=== PATIENT | female | born 1940 | race Caucasian/White ===

== ENCOUNTER 2022-02-09 20:28 | Observation (INO) | payer MEDICARE, BC, MEDICAID, SELFPAY ==
[2022-02-09] VITALS (17 sets, daily range): BP systolic 83–111; BP diastolic 45–60; PULSE 62–133; RESP 12–22; TEMP 36.8; O2SAT 98–100
--- NOTE | ~2022-02-09 | XR_ITS ---
EXAM: XR shoulder RT min 2V DATE: 02/09/2022 21:05 HISTORY: FALL, PAIN . COMPARISON: None available. FINDINGS: Partially visualized AICD lead. Normal mineralization. No fracture or dislocation. No lytic or blastic lesion. Degenerative glenohumeral and AC joint change. No erosion or periosteal change. S oft tissues within normal limits. IMPRESSION: No acute osseous finding in the right shoulder. Reviewed, dictated and finalized at location K.
--- NOTE | ~2022-02-09 | XR_ITS ---
EXAM: XR hip RT 2V w AP pelvis DATE: 02/09/2022 21:05 HISTORY: FALL, PAIN . COMPARISON: None available. FINDINGS: Right hip arthroplasty, without hardware fracture or abnormal lucency. Soft tissue anchors overlie the abdomen. Decreased mineralization. No fracture or dislocation. No lytic or blastic lesion . Degenerative change in the lumbar spine, left hip, and pubic symphysis. No erosion or periosteal ch rommel. Soft tissues within normal limits. IMPRESSION: No acute osseous finding in the pelvis or right hip. No hardware related complication. Reviewed, dictated and finalized at location K. IMPRESSION: No acute osseous finding in the pelvis or right hip. No hardware re lated complication.
--- NOTE | ~2022-02-09 | XR_ITS ---
EXAMINATION: XR chest 1V Exam Date/Time: 02/09/2022 20:55 CDT HISTORY: hypotension, GROUND LEVEL FALL TODAY Comparison: None available. RESULT: Lines, tubes, and devices: Left chest AICD, leads intact. Left axillary surgical clips. Lungs and pleura: Clear. Cardiomediastinal silhouette: Stable cardiomediastinal silhouette. Other: No acute osseous or upper abdominal finding. Subacute/chronic-appearing left posterior rib fr actures IMPRESSION: No acute cardiopulmonary process. Reviewed, dictated and finalized at location K.
--- NOTE | ~2022-02-09 | CT_ITS ---
EXAMINATION: CT brain wo con DATE: 02/09/2022 20:55 INDICATION: fall . TECHNIQUE: Computed tomography (CT) of the head was performed without intravenous contrast. The mA wa s adjusted according to patient size. Iterative reconstruction technique was employed. The dose-lengt h product was 605.33 mGy-cm. COMPARISON: None FINDINGS: No acute intracranial hemorrhage or extra-axial fluid collection. No hydrocephalus, mass, or herniation. No acute ischemic infarct. Unremarkable dural venous sinus attenuation. No acute osseous abnormality. Large right frontal/orbital soft tissue contusion. Small left frontal c ontusion. The aerated spaces are clear. Moderate atrophy and chronic white matter change. Atherosclerotic intracranial arterial calcification s. Bilateral lens replacements IMPRESSION: No acute intracranial process. Reviewed, dictated and finalized at location K.
--- NOTE | 2022-02-09 20:35 | ECG_ITS ---
Measurements Intervals [place] Rate: 73 P: 89 OR: 175 QRS: -17 QRSD: 150 T: 153 QT: 424 QTc: 469 Interpretive Statements SINUS RHYTHM WITH OCCASIONAL VENTRICULAR PREMATURE COMPLEXES WITH OCCASIONAL SUPRAVENTRICULAR PREMATURE COMPLEXES LEFT BUNDLE BRANCH BLOCK ABNORMAL ECG NO PREVIOUS ECG AVAILABLE FOR COMPARISON Electronically Signed On 02-10-2022 14:36:08 CDT by Danny Brandt M.D.
[2022-02-09 20:49] LABS: Basophils Percent Auto 0.4 % (0.2-1.2); Eosinophils Absolute Auto 0.1 K/mm3 (0-0.3); Eosinophils Percent Auto 0.6 % (0-4.4); Hematocrit 36.5 % (37.0-47.0); Hemoglobin 11.1 g/dL (12.0-15.0); Immature Granulocyte Absolute 0.01 K/mm3 (0.00-0.031); Immature Granulocyte Percent A 0.1 % (0-0.5); Lymphocytes Absolute Auto 2.78 K/mm3 (0.9-3.2); Lymphocytes Percent Auto 35.5 % (18.3-44.2); Mean Corpuscular HGB Conc 30.4 g/dl (32-36); Mean Corpuscular Hemoglobin 27.4 pg (26-34); Mean Corpuscular Volume 90.1 fl (80-100); Mean Platelet Volume 11.3 fl (7.4-10.4); Monocytes Absolute Auto 0.7 K/mm3 (0.1-0.6); Monocytes Percent Auto 8.5 % (2.6-8.5); Neutrophils Absolute Auto 4.3 K/mm3 (1.3-6.7); Neutrophils Percent Auto 54.9 % (45.5-73.1); Platelet Count Result 190 k/mm3 (150-375); Red Blood Count 4.05 M/mm3 (4.2-5.4); Red Cell Distribution Width 15.7 % (11.5-14.5); White Blood Count 7.8 K/mm3 (4.5-10.0)
[2022-02-09 20:59] LABS: Alanine Aminotransferase 11 U/L (6-35); Albumin Level 3.1 g/dL (3.5-5.1); Alkaline Phosphatase 90 U/L (38-126); Anion Gap 7 mmol/L (8-16); Aspartate Amino Transferase 21 U/L (14-36); Bilirubin,Total 0.1 mg/dL (0.2-1.3); Blood Urea Nitrogen 33 mg/dL (7-17); Carbon Dioxide 25 mmol/L (22-30); Chloride 106 mmol/L (98-107); Estimated CRCL calculation 43 ml/min; Estimated Glomerular Filt Rate 48; Glucose 145 mg/dL (65-110); Magnesium 1.2 mg/dL (1.6-2.3); Potassium 3.8 mmol/L (3.4-5.0); Sodium 138 mmol/L (137-145)
[2022-02-09 21:00] LABS: Prothrombin Time 12.7 Seconds (11.1-14.7)
[2022-02-09 21:01] LABS: Partial Thromboplastin Time 24.9 SECONDS (22.3-36.8)
[2022-02-09] MEDS: SODIUM CHLORIDE 0.9% IV 1,000 ML 999 ML IV CONT ×2 (21:05→23:58)
[2022-02-09 21:27] LABS: Troponin I 0.038 ng/mL (0.000-0.034)
--- NOTE | 2022-02-09 21:28 | ED.FALL ---
HPI - Fall General Chief Complaint: Fall Stated Complaint: fall, blood thinners, head hematoma History of Present Illness HPI Narrative: Pt lost her balance and fell striking her head but is not sure if she lost consciousness. Pt complains of JE[place] and pain to forehead. Review of Systems Review of Systems: All systems reviewed & are unremarkable except as noted in HPI and below Exam Const: General: healthy appearing and no acute distress Nutritional Appearance: well nourished Orientation/consciousness: patient oriented x3 Limitations: other limitations (dementia) HENMT: Head: contusion (hematoma to forehead) Face and sinus: normal facial exam Eyes: Conjunctivae: conjunctivae normal Pupils: Equal, round and reactive pupils present EOM: EOMs intact bilaterally Neck: Neck: normal visual inspection and no meningeal signs Chest: Chest palpation & inspection: normal inspection of the chest Resp: Effort & Inspection: normal respiratory effort Auscultation: clear to auscultation bilaterally Cardio: Rate: regular rate Rhythm: regular rhythm GI: Auscultation: normal bowel sounds Skin: General skin exam: normal color Rashes: no rashes Neuro: General: patient oriented x3 Cranial nerves: Yes Nystagmus not present Speech: normal speech Extrem: General: normal to inspection Psych: Mental Status: mental status grossly normal Affect: normal affect Attitude: cooperative Course Vital Signs Vital signs: Vital Signs Temperature 98.2 F 02/09/22 20:30 Pulse Rate 133 H 02/09/22 20:30 Respiratory Rate 22 H 02/09/22 20:30 Blood Pressure 83/60 L 02/09/22 20:30 Pulse Oximetry 100 02/09/22 20:30 Temperature 98.2 F 02/09/22 20:30 Pulse Rate 74 02/09/22 21:09 Respiratory Rate 18 02/09/22 21:09 Blood Pressure 93/55 L 02/09/22 21:09 Pulse Oximetry 98 02/09/22 21:09 MDM - Fall Lab Data Result diagrams: 02/09/22 20:42 02/09/22 20:42 Labs: Lab Results 02/09/22 02/09/22 02/09/22 Range/Units 20:42 20:42 20:42 WBC 7.8 (4.5-10.0) K/mm3 RBC 4.05 L (4.2-5.4) M/mm3 Hgb 11.1 L (12.0-15.0) g/dL Hct 36.5 L (37.0-47.0) % MCV 90.1 (80-100) fl MCH 27.4 (26-34) pg MCHC 30.4 L (32-36) g/dl RDW 15.7 H (11.5-14.5) % Plt Count 190 (150-375) k/mm3 MPV 11.3 H (7.4-10.4) fl Immature Gran % (Auto) 0.1 (0-0.5) % Neut % (Auto) 54.9 (45.5-73.1) % Lymph % (Auto) 35.5 (18.3-44.2) % [place] % (Auto) 8.5 (2.6-8.5) % Eos % (Auto) 0.6 (0-4.4) % Baso % (Auto) 0.4 (0.2-1.2) % Lymph # (Auto) 2.78 (0.9-3.2) K/mm3 [place] # (Auto) 0.7 H (0.1-0.6) K/mm3 Eos # (Auto) 0.1 (0-0.3) K/mm3 Baso # (Auto) 0.0 (0.0-0.1) K/mm3 Abs Immat Gran (auto) 0.01 (0.00-0.031) K/mm3 Absolute Neuts (auto) 4.3 (1.3-6.7) K/mm3 Absolute Nucleated RBC 0.0 (0.0-0.012) K/mm3 Nucleated RBC % 0.0 (0.0-0.2) % PT 12.7 (11.1-14.7) Seconds INR 1.0 APTT 24.9 (22.3-36.8) SECONDS Sodium 138 (137-145) mmol/L Potassium 3.8 (3.4-5.0) mmol/L Chloride 106 (98-107) mmol/L Carbon Dioxide 25 (22-30) mmol/L Anion Gap 7 L (8-16) mmol/L BUN 33 H (7-17) mg/dL Creatinine 1.10 H (0.7-1.0) mg/dL Estim Creat Clear Calc 43 ml/min Estimated GFR 48 L (59 - ) Glucose 145 H (65-110) mg/dL Calcium 8.0 L (8.4-10.2) mg/dL Magnesium (1.6-2.3) mg/dL Total Bilirubin 0.1 L (0.2-1.3) mg/dL AST 21 (14-36) U/L ALT 11 (6-35) U/L Alkaline Phosphatase 90 (38-126) U/L Troponin I (0.000-0.034) ng/mL Total Protein 6.0 L (6.3-8.2) g/dL Albumin 3.1 L (3.5-5.1) g/dL 02/09/22 02/09/22 Range/Units 20:42 22:43 WBC (4.5-10.0) K/mm3 RBC (4.2-5.4) M/mm3 Hgb (12.0-15.0) g/dL Hct (37.0-47.0) % MCV (80-100) fl MCH (26-34) pg MCHC (32-36) g/dl RDW (11.5-14.5) % Plt Count (150-375) k/mm3 MPV (7.4-10.4
[2022-02-10] VITALS (21 sets, daily range): BP systolic 90–106; BP diastolic 38–68; PULSE 50–76; RESP 12–22; TEMP 36.7–36.9; O2SAT 100; BMI 24.2
[2022-02-10] MEDS: MAGNESIUM SULF 4 GM/WATER100ML 4 GM/100 ML BAG IVPB (00:18)
--- NOTE | 2022-02-10 03:28 | ADMGEN ---
This patient, Graciela Florence, was admitted to IMU Room 203-01. Patient/family oriented to hospital policies and general routines including ID bracelet, bed and alarms, visiting hours, pain management, procedures, bathroom and other care routines, personal items, smoking policy, room service/diet, and visiting hours. Information on how to activate the Rapid Response Team has been discussed. Patient/Family are encouraged to report perceived risks to care and to ask questions if they do not understand what they are told or what they should do.
[2022-02-10 06:31] LABS: Troponin I 0.035 ng/mL (0.000-0.034)
[2022-02-10 08:53] LABS: Basophils Percent Auto 0.5 % (0.2-1.2); Eosinophils Percent Auto 0.7 % (0-4.4); Hemoglobin 8.9 g/dL (12.0-15.0); Immature Granulocyte Absolute 0.03 K/mm3 (0.00-0.031); Immature Granulocyte Percent A 0.5 % (0-0.5); Lymphocytes Absolute Auto 1.97 K/mm3 (0.9-3.2); Lymphocytes Percent Auto 33.1 % (18.3-44.2); Mean Corpuscular HGB Conc 29.7 g/dl (32-36); Mean Corpuscular Hemoglobin 27.3 pg (26-34); Mean Platelet Volume 11.5 fl (7.4-10.4); Monocytes Absolute Auto 0.6 K/mm3 (0.1-0.6); Monocytes Percent Auto 9.7 % (2.6-8.5); Neutrophils Absolute Auto 3.3 K/mm3 (1.3-6.7); Neutrophils Percent Auto 55.5 % (45.5-73.1); Platelet Count Result 147 k/mm3 (150-375); Red Blood Count 3.26 M/mm3 (4.2-5.4); Red Cell Distribution Width 15.8 % (11.5-14.5)
[2022-02-10 09:00] LABS: Alanine Aminotransferase 9 U/L (6-35); Albumin Level 2.4 g/dL (3.5-5.1); Alkaline Phosphatase 76 U/L (38-126); Anion Gap 4 mmol/L (8-16); Aspartate Amino Transferase 30 U/L (14-36); Bilirubin,Total < 0.1 mg/dL (0.2-1.3); Blood Urea Nitrogen 30 mg/dL (7-17); Calcium 7.2 mg/dL (8.4-10.2); Carbon Dioxide 24 mmol/L (22-30); Chloride 108 mmol/L (98-107); Estimated CRCL calculation 38 ml/min; Estimated Glomerular Filt Rate 60; Glucose 111 mg/dL (65-110); Potassium 3.4 mmol/L (3.4-5.0); Sodium 136 mmol/L (137-145)
[2022-02-10 09:22] LABS: Ovalocytes 1+ (NORMAL); Platelet Estimate Adequate (Adequate)
[2022-02-10 09:33] LABS: Magnesium 2.4 mg/dL (1.6-2.3)
[2022-02-10] MEDS: SILVERGEL (ELTA) 45 ML 1 APPLIC TOPICAL (12:05)
--- NOTE | 2022-02-10 13:50 | PM.SD2 ---
Same Day Admit/Disch: [facility] History of Present Illness Chief complaint: elevated troponin/hypotension Narrative: Graciela Florence is a 81 year old female with past medical history significant for hyperlipidemia, AFib, vitamin-D deficiency, heart failure, dementia as presenting after a fall. Patient unable to provide history, no history noted in the ER chart, nursing staff able to get some history from nursing facility where patient came from. At baseline, patient is alert and oriented x1. Labs and vital signs were stable while she was here with some occasional bradycardic episodes that were asymptomatic. ECG showed occasional PVCs and left bundle branch block, no previous ECG to compare with. Telemetry strips were essentially within normal limits while here. Patient was eager to go back to her facility. All imaging was negative for any fractures. She denied chest pain, shortness a breath or prodrome before her fall. No signs of focal deficits or generalized weakness on exam. Patient was discharged back to her facility in good condition at her baseline level of function and mentation. 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 [facility] Social History Social History Smoking status: Former smoker Alcohol intake: never Substance use: never Substance use type: does not use Spiritual care concerns: No Same Day Admit/Disch: Med Pre-admit Medications Home Medications Medication Instructions Recorded Confirmed Type aspirin 81 mg tablet,delayed 81 mg PO DAILY 02/10/22 02/10/22 History release atorvastatin 10 mg tablet 10 mg PO DAILY 02/10/22 02/10/22 History cholecalciferol (vitamin D3) 125 1 cap PO DAILY 02/10/22 02/10/22 History mcg (5,000 unit) capsule clopidogrel 75 mg tablet 75 mg PO DAILY 02/10/22 02/10/22 History divalproex 125 mg tablet,delayed 125 mg PO BID 02/10/22 02/10/22 History release (Depakote) donepezil 5 mg tablet 5 mg PO QPM 02/10/22 02/10/22 History furosemide 40 mg tablet 40 mg PO BID 02/10/22 02/10/22 History [id number] 1 cap PO BID 02/10/22 02/10/22 History 36,000-114,000-180,000 unit capsule,delay rel (Creon) oxybutynin chloride 10 mg 10 mg PO DAILY 02/10/22 02/10/22 History tablet,extended release 24 hr (Ditropan XL) potassium chloride 20 mEq 20 meq PO DAILY 02/10/22 02/10/22 History tablet,extended release Exam Narrative: General: Patient resting comfortably in bed, no acute distress HEENT: Atraumatic, normocephalic, mucous membranes moist CV: Regular rate and rhythm, S1, S2, no murmurs rubs or gallops noted Lungs: Clear to auscultation bilaterally, no rales or crackles noted, no wheezes, good air entry Abdomen: Soft, nontender, nondistended Extremities: Normal to inspection, no edema noted Skin: No rashes noted, no lesions or wounds seen Psych: Euthymic, normal affect Neuro: Cranial nerves 2-12 grossly intact, strength 5/5 upper and lower extremities noted DS: Data Data Completed and Pending Labs on day of discharge: Labs from last 24 hours 02/10/22 02/10/22 02/10/22 05:56 05:56 05:54 WBC RBC Hgb Hct MCV MCH MCHC RDW Plt Count MPV Immature Gran % (Auto) Neut % (Auto) Lymph % (Auto) [place] % (Auto) Eos % (Auto) Baso % (Auto) Lymph # (Auto) [place] # (Auto) Eos # (Auto) Baso # (Auto) Abs Immat Gran (auto) Absolute Neuts (auto) Absolute Nucleated RBC Nucleated RBC % Platelet Estimate Ovalocytes PT INR APTT Sodium 136 L Potassium 3.4 Chloride 108 H Carbon Dioxide 24 Anion Gap 4 L BUN 30 H Creatinine 0.90 Estim Creat Clear Calc 38 Estimated GFR 60 Glucose 111 H Calcium 7.2 L Magnesium 2.4 H Total Bilirubin < 0.1 L AST 30 ALT 9 Alkaline Phosphatase 76 Troponin I 0.035 H Total Protein 5.0 L Albumin 2.4 L 02/10/22 02/09/22 02/09/22 05:54 22
== END 2022-02-10 16:52 ==
LOC: ANHED 02-10 00:36 → ANHIMU 02-10 02:14
PROVIDERS: Admitting Provider Internal Medicine; Emergency Provider Emergency Medicine; Visit Provider Student in an Organized Health Care Education/Training Program
DX: S00.93XA Contusion of unspecified part of head, initial encounter (principal); W19.XXXA Unspecified fall, initial encounter; R51.9 Headache, unspecified; I95.9 Hypotension, unspecified; R77.8 Other specified abnormalities of plasma proteins; E78.5 Hyperlipidemia, unspecified; I48.91 Unspecified atrial fibrillation; E55.9 Vitamin D deficiency, unspecified; Z87.891 Personal history of nicotine dependence; Z79.82 Long term (current) use of aspirin
CPT/HCPCS: 36415; 70450; 71045; 73030; 73502; 80053; 83735; 84484; 85025; 85610; 85730; 93005; 96361; 96365; 99285; G0378; J3475; J7030

== ENCOUNTER 2022-02-11 07:50 | Emergency (ER) | payer MEDICARE, BC, MEDICAID, SELFPAY ==
[2022-02-11] VITALS (7 sets, daily range): BP systolic 79–102; BP diastolic 28–52; PULSE 54–91; RESP 10–21; TEMP 36.6; O2SAT 95–100
--- NOTE | ~2022-02-11 | XR_ITS ---
EXAMINATION: XR chest 1V DATE: 02/11/2022 09:18 INDICATION: Chest pain. Fall. TECHNIQUE: A single frontal view of the chest was obtained. COMPARISON: Chest single view 02/09/2022 FINDINGS: There is no pneumonia, pleural effusion, or pneumothorax. Cardiomegaly is noted. There is a left chest pacer/defibrillator with lead in right ventricle. There are surgical clips in left axilla . There are old healed left rib fractures. IMPRESSION: 1. Cardiomegaly. Reviewed, dictated and finalized at location A. IMPRESSION: 1. Cardiomegaly.
--- NOTE | ~2022-02-11 | CT_ITS ---
EXAMINATION: CT brain wo con DATE: 02/11/2022 09:05 INDICATION: Head injury. TECHNIQUE: Computed tomography (CT) of the head was performed without intravenous contrast. The mA wa s adjusted according to patient size. Iterative reconstruction technique was employed. The dose-lengt h product was 605.33 mGy-cm. COMPARISON: Head CT 02/09/22 FINDINGS: There are scattered areas of low attenuation in the cerebral white matter. There is extra-a xial fluid overlying left frontal lobe that is isodense to cerebral spinal fluid with maximum thickne ss of 8 mm, consistent with a hygroma versus chronic subdural hematoma. There is no acute intracrania l hemorrhage, acute infarction, or abnormal intracranial mass lesion. There is a right frontal scalp hematoma. There are likely changes of ocular lens replacement surgeries. There is mild mucosal thicke kenna in the paranasal sinuses. The mastoid air cells are normal. IMPRESSION: 1. 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 2. Stable moderate nonspecific cerebral white matter disease, which likely represents chronic small v essel ischemic disease. Reviewed, dictated and finalized at location A. IMPRESSION: 1. 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 2. Stable moderate nonspecific cerebral white matter disease, which likely repr esents chronic small vessel ischemic disease.
--- NOTE | ~2022-02-11 | XR_ITS ---
EXAMINATION: XR hip RT 2V w AP pelvis DATE: 02/11/2022 09:18 INDICATION: Right hip pain. Fall. TECHNIQUE: An anteroposterior view of the pelvis and 2 views of right hip were obtained. COMPARISON: Pelvis and right hip radiograph 02/09/2022 FINDINGS: There is a bipolar right hip hemiarthroplasty in near-anatomic alignment. No fracture. No p eriprosthetic lucency to suggest loosening or infection. There is right perihip heterotopic ossificat ion. Osteitis pubis is noted. There is mild right hip osteoarthritis and moderate left hip osteoarthr itis. There is moderate lumbar spondylosis. Surgical clips overlying the abdomen are likely from yan ia repair. IMPRESSION: 1. Bipolar right hip hemiarthroplasty in near-anatomic alignment. 2. 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 Reviewed, dictated and finalized at location A.
--- NOTE | ~2022-02-11 | CT_ITS ---
EXAMINATION: CT facial & cervical spine wo DATE: 02/11/2022 09:04 INDICATION: Head injury. TECHNIQUE: Computed tomography (CT) of the maxillofacial region and cervical spine was performed with out intravenous contrast. Automated exposure control and iterative reconstruction technique were empl oyed. The dose-length product was 354.38 mGy-cm. COMPARISON: Head CT 10/12/2021 FINDINGS: MAXILLOFACIAL CT: Motion artifact is noted. There is a right frontal scalp hematoma. There is right periorbital soft ti ssue swelling. There are likely changes of ocular lens replacement surgeries. There is mild mucosal thickening in the paranasal sinuses. The nose deviates to the left. No acute fracture. CERVICAL SPINE CT: There is 9 degrees levocurvature of cervical spine. There is 2 mm anterolisthesis of C3 on C4. Verteb ral body heights are normal. There is mildly decreased disc height at C3-C4, moderately decreased dis c height at C4-C5, and mildly decreased disc height at C5-C6 and C6-C7. The following disc levels are specifically discussed: C2-C3: There is no uncovertebral joint osteoarthritis. There is mild bilateral facet joint osteoarthr itis. There is no neural foraminal stenosis. There is no central canal stenosis. C3-C4: There is mild bilateral uncovertebral joint osteoarthritis. There is severe bilateral facet paula int osteoarthritis. There is mild bilateral neural foraminal stenosis. There is mild central canal st enosis. C4-C5: There is severe bilateral uncovertebral joint osteoarthritis. There is severe bilateral facet joint osteoarthritis. There is mild bilateral neural foraminal stenosis. There is moderate central ca nal stenosis. C5-C6: There is moderate right and severe left uncovertebral joint osteoarthritis. There is mild righ t facet joint osteoarthritis. There is mild bilateral neural foraminal stenosis. There is mild centra l canal stenosis. C6-C7: There is mild bilateral uncovertebral joint osteoarthritis. There is moderate right and mild l eft facet joint osteoarthritis. There is no neural foraminal stenosis. There is mild central canal st enosis. C7-T1: There is no uncovertebral joint osteoarthritis. There is moderate bilateral facet joint osteoa rthritis. There is no neural foraminal stenosis. There is no central canal stenosis. IMPRESSION: 1. No acute fracture. 2. Moderate cervical spondylosis. Reviewed, dictated and finalized at location A.
--- NOTE | ~2022-02-11 | XR_ITS ---
EXAMINATION: XR shoulder RT min 2V DATE: 02/11/2022 09:18 INDICATION: Right shoulder injury and pain. TECHNIQUE: 4 views of right shoulder were obtained. COMPARISON: Right shoulder radiograph 02/09/2022 FINDINGS: Bone alignment is normal. No fracture. There is moderate osteoarthritis of glenohumeral marissa nt and severe osteoarthritis of acromioclavicular joint. There is a left chest pacer with lead in rig ht ventricle. IMPRESSION: 1. Polyarticular osteoarthritis. Reviewed, dictated and finalized at location A.
--- NOTE | 2022-02-11 07:57 | ED.FALL ---
HPI - Fall General Chief Complaint: Fall Stated Complaint: GLF fall Time Seen by Provider: 02/11/22 07:57 History of Present Illness HPI Narrative: Patient is a 81-year-old female with a history of frequent falls, presenting to the emergency department for evaluation of ground-level fall that was witnessed. Patient was ambulating out of her room at the care facility when she was witnessed to fall, striking the right side of her face. No loss of conscious. Patient was brought here for evaluation given significant amount of bruising of her right face, right shoulder. The time of assessment, patient is alert and oriented to person, not to place or time. Apparently this is her baseline. Patient seems to have pain overlying the right face, right shoulder, right hip. Otherwise, history is limited secondary to the patient's dementia. I did review the patient's chart, she had an admission 2 days ago for similar, fall, noted to be hypotensive without visit to the ER as well. CT head imaging was reviewed and was normal. Related Data Home Medications Medication Instructions Recorded Confirmed aspirin 81 mg tablet,delayed 81 mg PO DAILY 02/10/22 02/10/22 release atorvastatin 10 mg tablet 10 mg PO DAILY 02/10/22 02/10/22 cholecalciferol (vitamin D3) 125 1 cap PO DAILY 02/10/22 02/10/22 mcg (5,000 unit) capsule clopidogrel 75 mg tablet 75 mg PO DAILY 02/10/22 02/10/22 divalproex 125 mg tablet,delayed 125 mg PO BID 02/10/22 02/10/22 release (Depakote) donepezil 5 mg tablet 5 mg PO QPM 02/10/22 02/10/22 furosemide 40 mg tablet 40 mg PO BID 02/10/22 02/10/22 [id number] 1 cap PO BID 02/10/22 02/10/22 36,000-114,000-180,000 unit capsule,delay rel (Creon) oxybutynin chloride 10 mg 10 mg PO DAILY 02/10/22 02/10/22 tablet,extended release 24 hr (Ditropan XL) potassium chloride 20 mEq 20 meq PO DAILY 02/10/22 02/10/22 tablet,extended release Allergies Allergy/AdvReac Type Severity Reaction Status Date / Time No Known Allergies Allergy Verified 02/10/22 03:29 Review of Systems Review of Systems: ROS unobtainable: Yes unobtainable due to mental status (Dementia history) [facility] Past Medical History Medical History (Updated 02/11/22 @ 09:53 by Columba Dawson MD) Acute hypotension Elevated troponin Social History Social History Smoking status: Former smoker Alcohol intake: never Substance use: never Substance use type: does not use Spiritual care concerns: No Exam Narrative: Nursing note and vitals reviewed. CONSTITUTIONAL: The patient appears uncomfortable, ecchymosis overlying right face. HEAD: Normocephalic, periorbital ecchymosis, ecchymosis overlying the right maxilla and mandibular area EYES: 2+ PERRL, EOMI, normal conjunctiva, anicteric, no subconjunctival hemorrhage or hyphema bilaterally EARS: External ears clear bilaterally, no hemotympanum MOUTH: OP clear, no erythema, exudates NECK: midline trachea, supple, FROM. Cervical collar in place. No perceived midline cervical spinal tenderness. CARDIOVASCULAR: Normal rate, regular rhythm, normal heart sounds and intact distal pulses. No murmurs, rubs, gallops. PULMONARY: Effort normal and breath sounds normal. No respiratory distress. The patient has no wheezes, rales, rhonchi. Pt with right sided chest wall tenderness without crepitus. ABDOMINAL: Soft. Nontender, nondistended. No palpable masses EXTREMITIES:: moving all extremities symmetrically. -RUE: Deformity overlying RUE. Decreased range of motion at the right shoulder, normal ROM at the elbow, wrist, and hand. Sensation intact M/U/R. Pulse 2+. Ecchymoses of the dorsum of the right hand with skin tears present. -LUE: No deformity. Normal ROM at shoulder, elbow, wrist, and hand., Sensation intact M/U/R. Pulse 2+ -RLE: No deformity. Painful internal and external rotation of the right hip without significant deformity. No limb l
--- NOTE | 2022-02-11 08:23 | ECG_ITS ---
Measurements Intervals [place] Rate: 69 P: 23 [place]: 193 QRS: -3 QRSD: 157 T: 177 QT: 458 QTc: 491 Interpretive Statements SINUS RHYTHM LEFT BUNDLE BRANCH BLOCK [120+ ms QRS DURATION, 80+ ms Q/S IN V1/V2, 85+ ms R IN I/aVL/V5/V6] COMPARED TO ECG 02/09/2022 20:42:02 NO SIGNIFICANT CHANGES Electronically Signed On 02-12-2022 16:15:19 CDT by Sebastián Macias M.D.
[2022-02-11] MEDS: SODIUM CHLORIDE 0.9% IV 500 ML 999 ML IV CONT ×2 (08:36→09:23)
[2022-02-11] MEDS: MORPHINE SULFATE (*CRX) 2 MG/ML INJ IV PUSH (08:37)
[2022-02-11] MEDS: ONDANSETRON INJ 4 MG/2 ML VIAL IV PUSH (08:37)
[2022-02-11 08:52] LABS: Basophils Percent Auto 0.6 % (0.2-1.2); Eosinophils Percent Auto 0.4 % (0-4.4); Hematocrit 30.2 % (37.0-47.0); Hemoglobin 9.1 g/dL (12.0-15.0); Immature Granulocyte Absolute 0.02 K/mm3 (0.00-0.031); Immature Granulocyte Percent A 0.4 % (0-0.5); Lymphocytes Absolute Auto 1.26 K/mm3 (0.9-3.2); Lymphocytes Percent Auto 24.1 % (18.3-44.2); Mean Corpuscular HGB Conc 30.1 g/dl (32-36); Mean Corpuscular Hemoglobin 27.2 pg (26-34); Mean Corpuscular Volume 90.1 fl (80-100); Mean Platelet Volume 11.7 fl (7.4-10.4); Monocytes Absolute Auto 0.5 K/mm3 (0.1-0.6); Monocytes Percent Auto 10.1 % (2.6-8.5); Neutrophils Absolute Auto 3.4 K/mm3 (1.3-6.7); Neutrophils Percent Auto 64.4 % (45.5-73.1); Platelet Count Result 150 k/mm3 (150-375); Red Blood Count 3.35 M/mm3 (4.2-5.4); Red Cell Distribution Width 15.7 % (11.5-14.5); White Blood Count 5.2 K/mm3 (4.5-10.0)
[2022-02-11 08:53] LABS: Appearance Urine Clear (Clear); Bilirubin Urine Negative (Negative); Blood Urine Negative (Negative); Color Urine Yellow (Yellow); Glucose Urine UA Negative (Negative); Ketones Urine Negative (Negative); Leukocyte Esterase Ur Negative LEU/UL (Negative); Nitrate Urine Positive (Negative); Protein Urine Negative (Negative); Specific Grav Ur 1.015 (1.001-1.035); Urobilinogen Urine 0.2 mg/dL (<2.0); pH Urine 5.5 (5.0-9.0)
[2022-02-11 09:06] LABS: Bacteria Urine Trace /hpf; Mucus Urine Rare /lpf; RBC Urine 0-2 /hpf (0-2); Squamous Epithelial Cell Urine Rare /hpf (Few); WBC Urine 0-3 /hpf
[2022-02-11 09:08] LABS: Anion Gap 6 mmol/L (8-16); Blood Urea Nitrogen 32 mg/dL (7-17); Calcium 7.8 mg/dL (8.4-10.2); Carbon Dioxide 26 mmol/L (22-30); Chloride 105 mmol/L (98-107); Estimated CRCL calculation 43 ml/min; Estimated Glomerular Filt Rate 60; Glucose 118 mg/dL (65-110); Potassium 3.5 mmol/L (3.4-5.0); Sodium 137 mmol/L (137-145)
[2022-02-11 09:09] LABS: Add Urine Microscopic? YES
[2022-02-11 09:24] LABS: Troponin I 0.047 ng/mL (0.000-0.034)
--- NOTE | 2022-02-11 10:24 | PC.NURSE ---
Dr. Dawson spoke with family and snf about pt condition. Family and alf staff are comfortable with pt returning to alf on comfort care.
== END 2022-02-11 11:25 | disposition hospice, home (50) ==
PROVIDERS: Emergency Provider Emergency Medicine; PCP Family Medicine
DX: I62.03 Nontraumatic chronic subdural hemorrhage (principal); R77.8 Other specified abnormalities of plasma proteins; R82.90 Unspecified abnormal findings in urine; S00.11XA Contusion of right eyelid and periocular area, initial encounter; S00.83XA Contusion of other part of head, initial encounter; S40.011A Contusion of right shoulder, initial encounter; S60.221A Contusion of right hand, initial encounter; R29.6 Repeated falls; F03.90 Unspecified dementia, unspecified severity, without behavioral disturbance, psychotic disturbance, mood disturbance, and anxiety; D64.9 Anemia, unspecified; Z66 Do not resuscitate; Z79.82 Long term (current) use of aspirin; Z87.891 Personal history of nicotine dependence; R90.82 White matter disease, unspecified; M47.812 Spondylosis without myelopathy or radiculopathy, cervical region; M19.011 Primary osteoarthritis, right shoulder; I44.7 Left bundle-branch block, unspecified; I51.7 Cardiomegaly; Z96.641 Presence of right artificial hip joint; M16.0 Bilateral primary osteoarthritis of hip; W18.39XA Other fall on same level, initial encounter
CPT/HCPCS: 36415; 51701; 70450; 70486; 71045; 72125; 73030; 73502; 80048; 81001; 83605; 84443; 84484; 85025; 93005; 96365; 96367; 96375; 99284; J0131; J0696; J2270; J2405; J7040